=== PATIENT | male | born 1975 | race Caucasian/White ===

== ENCOUNTER → 2020-08-28 | Outpatient (CLI) | payer BC | LOC: EXRD 08-27 09:45 | DX: K76.0 Fatty (change of) liver, not elsewhere classified (principal) | CPT/HCPCS: 76700 ==

== ENCOUNTER → 2021-01-29 | Outpatient (CLI) | payer BC | LOC: CT 07:18 | DX: C64.9 Malignant neoplasm of unspecified kidney, except renal pelvis (principal); K76.0 Fatty (change of) liver, not elsewhere classified; K57.30 Diverticulosis of large intestine without perforation or abscess without bleeding | CPT/HCPCS: 71046; 82565; Q9967 ==

== ENCOUNTER → 2022-01-27 | Outpatient (CLI) | payer BC | LOC: CT 08:41 | DX: N20.0 Calculus of kidney (principal); C64.9 Malignant neoplasm of unspecified kidney, except renal pelvis | CPT/HCPCS: 36415; 71046; 82565; Q9967 ==

== ENCOUNTER 2022-03-09 01:25 | Emergency (ER) | payer BC | END 2022-03-09 02:29 | disposition left against medical advice (07) | LOC: ER1 01:25 | DX: Z53.21 Procedure and treatment not carried out due to patient leaving prior to being seen by health care provider (principal) ==

== ENCOUNTER 2022-03-20 18:42 | Emergency (ER) | payer BC ==
[2022-03-20] MEDS ORDERED: AMOX TR-K CLV1 EAC4 PO (21:29)
== END 2022-03-20 21:34 | disposition home or self-care (01) ==
LOC: ER1 18:42
DX: H66.92 Otitis media, unspecified, left ear (principal); I10 Essential (primary) hypertension
CPT/HCPCS: 99282

== ENCOUNTER → 2022-03-25 | Outpatient (CLI) | payer BC ==
[~2022-03-25] MED LIST: AMOX TR-K CLV1 EAC4 PO
== END ==
LOC: CT 03-15 08:00
DX: R91.1 Solitary pulmonary nodule (principal)
CPT/HCPCS: 71270; Q9967